=== PATIENT | female | born 1955 | race Caucasian/White ===

== ENCOUNTER → 2016-11-05 | Outpatient (CLI) | payer MEDICARE ==
--- NOTE | 2016-11-05 19:53 | CT ---
EXAMINATION TYPE: CT chest w con DATE OF EXAM: 11/05/2016 COMPARISON: 08/19/2015 HISTORY: Follow up for lung nodules. CT DLP: 348.8 mGycm Automated exposure control for dose reduction was used. CONTRAST: CT scan of the chest is performed with IV Contrast, patient injected with 80 mL of Omnipaque 300. FINDINGS: There are mild emphysematous changes at the lung apices. There is some pleural emphysema in the mid a nd lower lung baez. There is coarse reticular density in the right middle lobe. There is a low-dens ity 1 cm nodule in the subpleural lateral left lung base. There is no pleural effusion. There is a lo w-density 7 mm nodule in the lingula left upper lobe. There is a 5 mm density along the left major fi ssure in the subpleural superior segment left lower lobe. There are no hilar masses. There is no mediastinal adenopathy. There is no evidence of aortic dissect ion. Heart size is normal. There is no pericardial effusion. Ascending aorta measures 3.7 cm. The bon y thorax is intact. There are cortical cysts on the upper pole left kidney. IMPRESSION: Emphysema. Pulmonary fibrotic changes. Small scattered low-density nodules consistent wi th granulomatous disease and without a significant change compared to last exam.
== END | disposition home or self-care (01) ==
LOC: RADCTMAIN 18:50
PROVIDERS: ATTEND Internal Medicine
DX: J43.9 Emphysema, unspecified (principal); J84.10 Pulmonary fibrosis, unspecified; R91.8 Other nonspecific abnormal finding of lung field; Z88.0 Allergy status to penicillin
CPT/HCPCS: 71260; Q9967

== ENCOUNTER → 2018-11-02 | Outpatient (CLI) | payer MEDICARE ==
--- NOTE | 2018-11-02 10:04 | BD ---
EXAMINATION TYPE: Axial Bone Density DATE OF EXAM: 11/02/2018 COMPARISON: NONE CLINICAL HISTORY: 63 YR OLD FEMALE....ICD-10 CODE: M81.0 OSTEOPOROSIS Height: 64 Weight: 178 FRAX RISK QUESTIONS: Family History (Parent hip fracture): YES Glucocorticoids (More than 3mos): YES (Ex: prednisone, prednisolone, methylprednisolone, dexamethasone, and hydrocortisone). SECONDARY OSTEOPOROSIS...YES 3. Menopause before 45: YES Rheumatoid Arthritis: YES Current Tobacco Use: YES RISK FACTORS HISTORY OF: Surgery to Spine DISC SURG TO L4 OR L5 DISC IN PAST, IN 2004 Family History of Osteoporosis: GRANDMOTHER WITH PELVIS AND HIP FX Postmenopausal woman: YES TOTAL HYST AT AGE 38 MEDICATIONS: Prednisone or other steroids: SPIRIVA INHALER FOR COPD, AND SMOKERS COUGH, FOR MANY YRS Additional Medications: CYMBALTA, ADDERALL, STATIN FOR CHOLESTEROL, VITAMIN D 50 THOU UNITS ONCE GEETA HLY, ORENCIA INJ WEEKLY, METHOTREXATE, Additional History: SKIN CA ON SCALP, RA ARTHRITIS EXAM MEASUREMENTS: Bone mineral densitometry was performed using the [employer] System. Bone mineral density as measured about the Lumbar spine is: ----- L1-L4(G/cm2): 1.057 T Score Values are as follows: ----- L1: -1.7 ----- L2: -1.6 ----- L3: -1.3 ----- L4: 0.2 ----- L1-L4: -1.0 Bone mineral density FIRST DEXA SCAN....BASELINE STUDY Bone mineral density about the R hip (g/cm2): 0.750 Bone mineral density about the L hip (g/cm2): 0.747 T Score values are as follows: -----R Neck: -2.0 -----L Neck: -2.3 -----R Total: -2.0 -----L Total: -2.1 Bone mineral density BASELINE STUDY FRAX%s: THERE IS A 40.6% CHANCE FOR A MAJOR OSTEOPOROTIC FX AND A 10.1% FOR HIP.....PROBABILITY FOR FX IN 10 YRS TIME IMPRESSION: Osteopenia (T Score between -2.5 and -1). There is slightly increased risk of fracture and the patient may be considered for treatment. Re-Screen 2-5 years. NOTE: T-SCORE=SD OF THE YOUNG ADULT MEAN.
== END | disposition home or self-care (01) ==
LOC: RADBDWWP 07:08
PROVIDERS: ATTEND Internal Medicine Rheumatology
DX: M85.80 Other specified disorders of bone density and structure, unspecified site (principal)
CPT/HCPCS: 77080

== ENCOUNTER → 2019-02-08 | Outpatient (CLI) | payer MEDICARE ==
[2019-02-08 10:58] LABS: Basophils % (A) 0 %; Eosinophils # (A) 0.3 k/uL (0-0.7); Eosinophils % (A) 5 %; HCT 41.6 % (34.0-46.0); HGB 13.4 gm/dL (11.4-16.0); Lymphocytes # (A) 1.6 k/uL (1.0-4.8); Lymphocytes % (A) 24 %; MCH 30.5 pg (25.0-35.0); MCHC 32.2 g/dL (31.0-37.0); MCV 94.5 fL (80.0-100.0); Mean Platelet Volume 7.1; Monocytes # (A) 0.3 k/uL (0-1.0); Monocytes % (A) 4 %; Neutrophils # (A) 4.2 k/uL (1.3-7.7); Neutrophils % (A) 65 %; Platelet Count 211 k/uL (150-450); RDW 14.3 % (11.5-15.5); WBC 6.5 k/uL (3.8-10.6)
[2019-02-08 12:07] LABS: Erythrocyte Sedimentation Rate 20 mm/hr (0-20)
[2019-02-08 15:29] LABS: % Iron Saturation 12.32 (12.00-45.00); African American GFR (CKD) 89.7 (60.0-200.0); C Reactive Protein 0.8 mg/dL (0.0-0.8); Chol/HDL Ratio 2.3; LDL Cholesterol,Calculated 74.4 mg/dL (0.0-131.0); Non-African American GFR(CKD) 77.4 (60.0-200.0); VLDL Calculation 11.6 mg/dL (5.00-40.00)
[2019-02-08 15:39] LABS: Ferritin 72.8 ng/mL (10.0-291.0)
== END | disposition home or self-care (01) ==
LOC: LABWHC1 09:54
PROVIDERS: ATTEND Family Medicine
DX: Z00.01 Encounter for general adult medical examination with abnormal findings (principal); G47.00 Insomnia, unspecified; M05.89 Other rheumatoid arthritis with rheumatoid factor of multiple sites; F33.1 Major depressive disorder, recurrent, moderate; E55.9 Vitamin D deficiency, unspecified; M25.50 Pain in unspecified joint; M06.9 Rheumatoid arthritis, unspecified; R41.840 Attention and concentration deficit; G25.81 Restless legs syndrome; Z13.220 Encounter for screening for lipoid disorders
CPT/HCPCS: 36415; 80061; 82306; 82565; 82728; 83540; 83550; 84450; 84460; 85025; 85652; 86140

== ENCOUNTER → 2019-02-08 | Outpatient (CLI) | payer MEDICARE ==
--- NOTE | 2019-02-08 12:55 | CTL ---
EXAMINATION TYPE: CT Low Dose Lung DATE OF EXAM ORDERED: 02/08/2019 HISTORY: Personal history tobacco use. Lung cancer screening CT DLP: [address] CTDI: 2.41 mGy Automated exposure control for dose reduction was used. SCREENING VISIT: 1 COMPARISON: CT chest 11/05/2016 TECHNIQUE: Low dose computed tomography scan was performed through the chest at 1 mm thick sections a nd reconstructed CT DIAGNOSTIC QUALITY: Satisfactory FINDINGS: LUNG NODULES: Present, detailed below: LUNGS: The nodular densities on axial image #198 and 180 are stable and likely postinflammatory COPD: Severity: Moderate Fibrosis: Severity: Severe Lymph nodes: Nonenlarged Other findings: RIGHT PLEURAL SPACE: Effusion: None Calcification: None Thickening: None Pneumothorax: None LEFT PLEURAL SPACE: Effusion: None Calcification: None Thickening: None Pneumothorax: None HEART: Heart Size: Small Coronary calcification: Moderate Pericardial effusion: None OTHER FINDINGS: Upper abdomen: Unremarkable Bony thorax: Thoracic spondylosis is present Supraclavicular region: Within normal limits Other: IMPRESSION: Benign FOLLOW UP CT CHEST RECOMMENDATION: [address] LUNG RAD: 2
--- NOTE | 2019-02-09 15:06 | MM ---
Reason for exam: screening (asymptomatic). Last mammogram was performed 4 years and 6 months ago. History: Patient is postmenopausal, history of other cancer, and had first child after 28. Excisional biopsy of the left breast. Took estrogen for 1 year. Physical Findings: A clinical breast exam by your physician is recommended on an annual basis and results should be correlated with mammographic findings. MG Screening Mammo w CAD Bilateral CC and MLO view(s) were taken. Prior study comparison: August 05, 2014, bilateral MG screening mammo w CAD. July 21, 2012, CAD bilateral diagnostic mammogram. The breast tissue is heterogeneously dense. This may lower the sensitivity of mammography. There is a new 5mm right upper outer quadrant middle depth mass 6-7cm from nipple. No suspicious abnormality on the left. ASSESSMENT: Incomplete: need additional imaging evaluation, BI-RAD 0 RECOMMENDATION: Special view mammogram of the right breast. If lesion persists on supplemental views, image directed ultrasound is recommended. [facility] will attempt to contact patient to return for supplemental views and ultrasound if indicated.
== END | disposition home or self-care (01) ==
LOC: RADMAMWWP 09:51
PROVIDERS: ATTEND Family Medicine
DX: Z12.31 Encounter for screening mammogram for malignant neoplasm of breast (principal); Z12.2 Encounter for screening for malignant neoplasm of respiratory organs; J44.9 Chronic obstructive pulmonary disease, unspecified; F17.210 Nicotine dependence, cigarettes, uncomplicated
CPT/HCPCS: 77067; G0297

== ENCOUNTER → 2019-02-26 | Outpatient (CLI) | payer MEDICARE ==
--- NOTE | 2019-02-26 10:34 | MM ---
Reason for exam: additional evaluation requested from abnormal screening. Last mammogram was performed 1 month ago. History: Patient is postmenopausal, history of other cancer, and had first child after 28. Excisional biopsy of the left breast. Took estrogen for 1 year. Physical Findings: Nurse did not find any significant physical abnormalities on exam. MG Work Up Mamm w CAD RT Spot compression CC, spot compression MLO, and ML view(s) were taken of the right breast. Prior study comparison: February 08, 2019, bilateral MG screening mammo w CAD. August 05, 2014, bilateral MG screening mammo w CAD. The breast tissue is heterogeneously dense. This may lower the sensitivity of mammography. Right upper outer quadrant focal asymmetry 6-7cm from nipple appears somewhat similar to prior exams. Precautionary upper outer quadrant ultrasound will be performed. These results were verbally communicated with the patient and result sheet given to the patient on 02/26/19. ASSESSMENT: Incomplete: need additional imaging evaluation, BI-RAD 0 RECOMMENDATION: Ultrasound of the right breast.
--- NOTE | 2019-02-26 10:35 | USB ---
Reason for exam: additional evaluation requested from abnormal screening. History: Patient is postmenopausal, history of other cancer, and had first child after 28. Excisional biopsy of the left breast. Took estrogen for 1 year. US Breast Workup Limited RT Right limited breast ultrasound including focal area of concern, retroareolar and axilla demonstrates no cystic or solid lesion seen. These results were verbally communicated with the patient and result sheet given to the patient on 02/26/19. ASSESSMENT: Negative, BI-RAD 1 RECOMMENDATION: Return to routine screening mammogram schedule for both breasts.
== END | disposition home or self-care (01) ==
LOC: RADMAMWWP 08:49
PROVIDERS: ATTEND Family Medicine
DX: R92.8 Other abnormal and inconclusive findings on diagnostic imaging of breast (principal)
CPT/HCPCS: 77065

== ENCOUNTER → 2019-11-14 | Outpatient (CLI) | payer MEDICARE ==
[2019-11-14 09:31] LABS: Basophils % (A) 0 %; Eosinophils # (A) 0.1 k/uL (0-0.7); Eosinophils % (A) 2 %; HCT 42.9 % (34.0-46.0); HGB 13.3 gm/dL (11.4-16.0); Lymphocytes # (A) 1.5 k/uL (1.0-4.8); Lymphocytes % (A) 23 %; MCH 28.9 pg (25.0-35.0); MCHC 31.1 g/dL (31.0-37.0); Mean Platelet Volume 6.8; Monocytes # (A) 0.4 k/uL (0-1.0); Monocytes % (A) 5 %; Neutrophils # (A) 4.4 k/uL (1.3-7.7); Neutrophils % (A) 68 %; Platelet Count 226 k/uL (150-450); RBC 4.61 m/uL (3.80-5.40); RDW 14.1 % (11.5-15.5); WBC 6.5 k/uL (3.8-10.6)
[2019-11-14 18:14] LABS: Albumin 4.1 g/dL (3.80-4.90); Albumin/Globulin Ratio 1.86 (1.60-3.17); Anion Gap 7.5 mmol/L (4.00-12.00); BUN/Creat Ratio 28.75 Ratio (12.00-20.00); C Reactive Protein 0.4 mg/dL (0.0-0.8); Carbon Dioxide 26.5 mmol/L (21.6-31.8); Chol/HDL Ratio 2.8; Globulin 2.2 g/dL (1.6-3.3); Non-African American GFR(CKD) 76.8 (60.0-200.0); Potassium 4.8 mmol/L (3.5-5.5); Total Bilirubin 0.5 mg/dL (0.3-1.2); Total Protein 6.3 g/dL (6.2-8.2)
[2019-11-14 18:49] LABS: Erythrocyte Sedimentation Rate 29 mm/Hr (0-30)
== END | disposition home or self-care (01) ==
LOC: LABWHC1 08:04
PROVIDERS: ATTEND Family Medicine
DX: F90.0 Attention-deficit hyperactivity disorder, predominantly inattentive type (principal); M05.89 Other rheumatoid arthritis with rheumatoid factor of multiple sites; F33.1 Major depressive disorder, recurrent, moderate; F17.210 Nicotine dependence, cigarettes, uncomplicated; E55.9 Vitamin D deficiency, unspecified
CPT/HCPCS: 36415; 80053; 80061; 82306; 85025; 85652; 86140

== ENCOUNTER → 2020-02-08 | Outpatient (CLI) | payer MEDICARE ==
[2020-02-08 10:02] LABS: Basophils % (A) 0 %; Eosinophils # (A) 0.1 k/uL (0-0.7); Eosinophils % (A) 2 %; HCT 41.4 % (34.0-46.0); HGB 13.3 gm/dL (11.4-16.0); Lymphocytes # (A) 1.8 k/uL (1.0-4.8); Lymphocytes % (A) 27 %; MCH 30.5 pg (25.0-35.0); MCV 95.4 fL (80.0-100.0); Mean Platelet Volume 6.7; Monocytes # (A) 0.2 k/uL (0-1.0); Monocytes % (A) 3 %; Neutrophils # (A) 4.5 k/uL (1.3-7.7); Neutrophils % (A) 67 %; Platelet Count 239 k/uL (150-450); RBC 4.35 m/uL (3.80-5.40); RDW 14.8 % (11.5-15.5); WBC 6.7 k/uL (3.8-10.6)
[2020-02-08 11:37] LABS: Erythrocyte Sedimentation Rate 18 mm/hr (0-20)
[2020-02-08 15:59] LABS: ALT 50 U/L (8-44); AST 40 U/L (13-35); African American GFR (CKD) 77.2 (60.0-200.0); C Reactive Protein <0.4 mg/dL (0.0-0.8); Non-African American GFR(CKD) 66.6 (60.0-200.0)
== END | disposition home or self-care (01) ==
LOC: LABWHC1 09:06 → EDSTATUS 09:09
PROVIDERS: ATTEND Internal Medicine Rheumatology
DX: M06.9 Rheumatoid arthritis, unspecified (principal)
CPT/HCPCS: 36415; 82565; 84450; 84460; 85025; 85652; 86140

== ENCOUNTER → 2020-04-11 | Outpatient (CLI) | payer MEDICARE ==
--- NOTE | 2020-04-11 11:04 | MM ---
Reason for exam: screening (asymptomatic). Last mammogram was performed 1 year and 1 month ago. History: Patient is postmenopausal, history of other cancer, and had first child after 28. Excisional biopsy of the left breast. Took estrogen for 1 year. Physical Findings: A clinical breast exam by your physician is recommended on an annual basis and results should be correlated with mammographic findings. MG 3D Screening Mammo W/Cad Bilateral CC and MLO view(s) were taken. Prior study comparison: February 26, 2019, right breast MG work up mamm w CAD RT. February 08, 2019, bilateral MG screening mammo w CAD. The breast tissue is extremely dense which could obscure a lesion on mammography. There is no discrete abnormality. No significant changes when compared with prior studies. ASSESSMENT: Negative, BI-RAD 1 RECOMMENDATION: Routine screening mammogram of both breasts in 1 year.
== END | disposition home or self-care (01) ==
LOC: RADMAMWWP 09:50
PROVIDERS: ATTEND Family Medicine
DX: Z12.31 Encounter for screening mammogram for malignant neoplasm of breast (principal)
CPT/HCPCS: 77063; 77067

== ENCOUNTER → 2020-05-08 | Outpatient (CLI) | payer MEDICARE ==
[2020-05-08 20:28] LABS: Basophils # (A) 0.05 X 10*3/uL (0.00-0.10); Basophils % (A) 0.7 %; Eosinophils % (A) 1.4 %; HCT 40.9 % (37.2-46.3); HGB 12.9 g/dL (12.0-15.0); Lymphocytes # (A) 2.05 X 10*3/uL (0.90-5.00); Lymphocytes % (A) 28.3 %; MCH 30.7 pg (27.0-32.0); MCHC 31.5 g/dL (32.0-37.0); MCV 97.4 fL (80.0-97.0); Mean Platelet Volume 9.5 fL (9.5-12.2); Monocytes # (A) 0.43 X 10*3/uL (0.20-1.00); Monocytes % (A) 5.9 %; Neutrophils # (A) 4.58 X 10*3/uL (1.80-7.70); Neutrophils % (A) 63.3 %; Platelet Count 254 X 10*3/uL (140-440); RDW 12.9 % (11.5-14.5); WBC 7.24 X 10*3/uL (4.50-10.00)
[2020-05-08 23:29] LABS: Erythrocyte Sedimentation Rate 17 mm/Hr (0-30)
[2020-05-09 03:44] LABS: ALT 46 U/L (8-44); AST 28 U/L (13-35); C Reactive Protein <0.4 mg/dL (0.0-0.8); Non-African American GFR(CKD) 76.8 (60.0-200.0)
== END | disposition home or self-care (01) ==
LOC: LABWHC1 09:41 → EDSTATUS 09:44
PROVIDERS: ATTEND Internal Medicine Rheumatology
DX: M06.9 Rheumatoid arthritis, unspecified (principal)
CPT/HCPCS: 36415; 82565; 84450; 84460; 85025; 85652; 86140

== ENCOUNTER → 2020-08-08 | Outpatient (CLI) | payer MEDICARE ==
[2020-08-08 15:35] LABS: Basophils # (A) 0.03 X 10*3/uL (0.00-0.10); Basophils % (A) 0.4 %; Eosinophils % (A) 1.2 %; HCT 40.1 % (37.2-46.3); HGB 12.7 g/dL (12.0-15.0); Lymphocytes # (A) 1.81 X 10*3/uL (0.90-5.00); Lymphocytes % (A) 22.6 %; MCH 31.4 pg (27.0-32.0); MCHC 31.7 g/dL (32.0-37.0); MCV 99.3 fL (80.0-97.0); Mean Platelet Volume 9.7 fL (9.5-12.2); Monocytes # (A) 0.72 X 10*3/uL (0.20-1.00); Neutrophils # (A) 5.31 X 10*3/uL (1.80-7.70); Neutrophils % (A) 66.2 %; Platelet Count 229 X 10*3/uL (140-440); RBC 4.04 X 10*6/uL (4.10-5.20); RDW 14.5 % (11.5-14.5); WBC 8.02 X 10*3/uL (4.50-10.00)
[2020-08-08 17:59] LABS: ALT 44 U/L (8-44); AST 32 U/L (13-35); African American GFR (CKD) 76.7 (60.0-200.0); C Reactive Protein <0.4 mg/dL (0.0-0.8); Non-African American GFR(CKD) 66.2 (60.0-200.0)
[2020-08-08 18:02] LABS: Erythrocyte Sedimentation Rate 15 mm/Hr (0-30)
== END | disposition home or self-care (01) ==
LOC: LABWHC1 08:40
PROVIDERS: ATTEND Internal Medicine Rheumatology
DX: M06.9 Rheumatoid arthritis, unspecified (principal)
CPT/HCPCS: 36415; 82565; 84450; 84460; 85025; 85652; 86140

== ENCOUNTER → 2021-09-28 | Outpatient (CLI) | payer MEDICARE ==
[2021-09-28 15:00] LABS: Basophils # (A) 0.02 X 10*3/uL (0.00-0.10); Basophils % (A) 0.3 %; Eosinophils # (A) 0.09 X 10*3/uL (0.04-0.35); Eosinophils % (A) 1.2 %; HGB 12.3 g/dL (12.0-15.0); Immature Grans, Automated 0.6 %; Lymphocytes # (A) 1.56 X 10*3/uL (0.90-5.00); Lymphocytes % (A) 21.5 %; MCH 30.5 pg (27.0-32.0); MCV 101.7 fL (80.0-97.0); Mean Platelet Volume 9.4 fL (9.5-12.2); Monocytes # (A) 0.52 X 10*3/uL (0.20-1.00); Monocytes % (A) 7.2 %; NRBC Per 100 WBC 0 /100 WBCS (0.0-0.0); Neutrophils # (A) 5.01 X 10*3/uL (1.80-7.70); Neutrophils % (A) 69.2 %; Platelet Count 261 X 10*3/uL (140-440); RBC 4.03 X 10*6/uL (4.10-5.20); RDW 14.6 % (11.5-14.5); WBC 7.24 X 10*3/uL (4.50-10.00)
[2021-09-28 15:04] LABS: ALT 48 U/L (8-44); AST 33 U/L (13-35); C Reactive Protein <0.30 mg/dL (0.00-0.80); Non-African American GFR(CKD) 57.8 (60.0-200.0)
[2021-09-28 15:45] LABS: Erythrocyte Sedimentation Rate 48 mm/Hr (0-30)
== END | disposition home or self-care (01) ==
LOC: LABWHC1 09:13
PROVIDERS: ATTEND Internal Medicine Rheumatology
DX: M06.9 Rheumatoid arthritis, unspecified (principal)
CPT/HCPCS: 36415; 82565; 84450; 84460; 85025; 85652; 86140

== ENCOUNTER → 2022-01-11 | Outpatient (CLI) | payer MEDICARE ==
[2022-01-11 14:19] LABS: Basophils # (A) 0.03 X 10*3/uL (0.00-0.10); Basophils % (A) 0.4 %; Eosinophils # (A) 0.12 X 10*3/uL (0.04-0.35); Eosinophils % (A) 1.6 %; HCT 40.3 % (37.2-46.3); HGB 12.7 g/dL (12.0-15.0); Immature Grans, Automated 0.9 %; Lymphocytes # (A) 1.78 X 10*3/uL (0.90-5.00); Lymphocytes % (A) 23.4 %; MCH 32.6 pg (27.0-32.0); MCHC 31.5 g/dL (32.0-37.0); MCV 103.6 fL (80.0-97.0); Mean Platelet Volume 9.2 fL (9.5-12.2); Monocytes # (A) 0.47 X 10*3/uL (0.20-1.00); Monocytes % (A) 6.2 %; NRBC Per 100 WBC 0 /100 WBCS (0.0-0.0); Neutrophils # (A) 5.14 X 10*3/uL (1.80-7.70); Neutrophils % (A) 67.5 %; Platelet Count 255 X 10*3/uL (140-440); RBC 3.89 X 10*6/uL (4.10-5.20); RDW 14.7 % (11.5-14.5); WBC 7.61 X 10*3/uL (4.50-10.00)
[2022-01-11 15:31] LABS: ALT 53 U/L (8-44); AST 33 U/L (13-35); C Reactive Protein <0.30 mg/dL (0.00-0.80); Non-African American GFR(CKD) 57.8 (60.0-200.0)
[2022-01-11 16:28] LABS: Erythrocyte Sedimentation Rate 25 mm/Hr (0-30)
== END | disposition home or self-care (01) ==
LOC: LABWHC1 09:07
PROVIDERS: ATTEND Internal Medicine Rheumatology
DX: M06.9 Rheumatoid arthritis, unspecified (principal)
CPT/HCPCS: 36415; 82565; 84450; 84460; 85025; 85652; 86140

== ENCOUNTER → 2022-03-05 | Outpatient (CLI) | payer MEDICARE ==
[2022-03-05 14:54] LABS: Basophils # (A) 0.04 X 10*3/uL (0.00-0.10); Basophils % (A) 0.6 %; Eosinophils # (A) 0.09 X 10*3/uL (0.04-0.35); Eosinophils % (A) 1.4 %; HCT 39.8 % (37.2-46.3); HGB 12.8 g/dL (12.0-15.0); Immature Grans, Automated 0.6 %; Lymphocytes # (A) 1.66 X 10*3/uL (0.90-5.00); Lymphocytes % (A) 26.4 %; MCH 33.2 pg (27.0-32.0); MCHC 32.2 g/dL (32.0-37.0); MCV 103.1 fL (80.0-97.0); Mean Platelet Volume 9.4 fL (9.5-12.2); Monocytes # (A) 0.45 X 10*3/uL (0.20-1.00); Monocytes % (A) 7.2 %; NRBC Per 100 WBC 0 /100 WBCS (0.0-0.0); Neutrophils % (A) 63.8 %; Platelet Count 230 X 10*3/uL (140-440); RBC 3.86 X 10*6/uL (4.10-5.20); RDW 13.9 % (11.5-14.5); WBC 6.28 X 10*3/uL (4.50-10.00)
[2022-03-05 15:18] LABS: Erythrocyte Sedimentation Rate 42 mm/Hr (0-30)
[2022-03-05 15:47] LABS: ALT 66 U/L (8-44); AST 37 U/L (13-35); C Reactive Protein <0.30 mg/dL (0.00-0.80); Non-African American GFR(CKD) 57.8 (60.0-200.0)
== END | disposition home or self-care (01) ==
LOC: LABWHC1 09:22
PROVIDERS: ATTEND Internal Medicine Rheumatology
DX: M06.9 Rheumatoid arthritis, unspecified (principal)
CPT/HCPCS: 36415; 82565; 84450; 84460; 85025; 85652; 86140

== ENCOUNTER → 2022-06-23 | Outpatient (CLI) | payer MEDICARE ==
--- NOTE | 2022-06-23 09:33 | CTL ---
EXAMINATION TYPE: CT Low Dose Lung DATE OF EXAM ORDERED: 06/23/2022 HISTORY: Long-term tobacco use . Lung cancer screening CT DLP: 132.[address] CTDI: 3.7 mGy Automated exposure control for dose reduction was used. SCREENING VISIT: First after baseline COMPARISON: Prior study 2019 TECHNIQUE: Low dose computed tomography scan was performed through the chest at 1 mm thick sections a nd reconstructed images in multiple planes at 1 mm and [address] DIAGNOSTIC QUALITY: Limited, but interpretable Better diagnostic quality versus prior. FINDINGS: LUNG NODULES: Present, detailed below: There is 5 mm peripheral lingular nodule axial image 189 unchanged from prior. There is a 6 mm periph eral left lower lobe nodule axial image 195 unchanged from prior. There is 7 mm peripheral right midd le lobe nodule axial image 185 also unchanged from prior. There is 9 x 5 mm left lower lobe nodule or nodular scarring abutting the fissure axial image 142 which is stable from prior. There is however slightly larger growing 9 x 6 mm peripheral right lower lobe nodule axial image 228. No new greater than 5 mm pulmonary nodules. LUNGS: COPD: Severity: Mild Fibrosis: Severity: Fairly advanced bilateral peripheral fibrotic change with areas of honeycombing s een in the periphery bilaterally and areas of bronchiectasis noted in the right middle lobe. There ma y be slight interval progression from 2019 study. Lymph nodes: New prominent but subcentimeter lymph node anterior to ascending aorta axial image 19 se nasreen 4. Other findings: Ascending aorta measures up to 3.9 cm in diameter RIGHT PLEURAL SPACE: Effusion: None Calcification: None Thickening: None Pneumothorax: None LEFT PLEURAL SPACE: Effusion: None Calcification: None Thickening: None Pneumothorax: None HEART: Heart Size: Normal Coronary Calcification: Mild Pericardial Effusion: None OTHER FINDINGS: Upper abdomen: Some cortical thinning with thin-walled cysts scattered throughout the upper pole of t he left kidney. Visualized Liver is diffusely low dense consistent with diffuse fatty infiltration Bony thorax: None Supraclavicular region: None Other: None IMPRESSION: Advanced bilateral pulmonary parenchymal fibrotic change perhaps slightly worsened from 2 019. Correlate for UIP. Small nodules or nodular scarring bilaterally redemonstrated. Majority stable presumed postinflammatory. There is one slightly larger 9 x [address] LUNG RAD AND CT CHEST RECOMMENDATION: Lung-Rad 4A Suspicious: Follow-up 3 month LDCT or PET/CT may be used when there is a > 8 mm solid component. S Modifier (other clinically significant findings): S Prominent fibrosis.
== END | disposition home or self-care (01) ==
LOC: RADCTMAIN 08:11
PROVIDERS: ATTEND Family Medicine
DX: Z12.2 Encounter for screening for malignant neoplasm of respiratory organs (principal); J84.10 Pulmonary fibrosis, unspecified; J98.4 Other disorders of lung; F17.210 Nicotine dependence, cigarettes, uncomplicated; R91.8 Other nonspecific abnormal finding of lung field
CPT/HCPCS: 71271

== ENCOUNTER → 2022-06-23 | Outpatient (CLI) | payer MEDICARE ==
[2022-06-23 15:28] LABS: Basophils # (A) 0.01 X 10*3/uL (0.00-0.10); Basophils % (A) 0.2 %; Eosinophils # (A) 0.05 X 10*3/uL (0.04-0.35); Eosinophils % (A) 0.9 %; HCT 41.6 % (37.2-46.3); HGB 13.5 g/dL (12.0-15.0); Immature Grans, Automated 0.5 %; Lymphocytes # (A) 0.77 X 10*3/uL (0.90-5.00); Lymphocytes % (A) 13.9 %; MCH 31.4 pg (27.0-32.0); MCHC 32.5 g/dL (32.0-37.0); MCV 96.7 fL (80.0-97.0); Monocytes # (A) 0.31 X 10*3/uL (0.20-1.00); Monocytes % (A) 5.6 %; NRBC Per 100 WBC 0 /100 WBCS (0.0-0.0); Neutrophils # (A) 4.35 X 10*3/uL (1.80-7.70); Neutrophils % (A) 78.9 %; Platelet Count 239 X 10*3/uL (140-440); WBC 5.52 X 10*3/uL (4.50-10.00)
[2022-06-23 17:16] LABS: C Reactive Protein 1.9 mg/dL (0.00-0.80); Non-African American GFR(CKD) 57.8 (60.0-200.0)
[2022-06-23 17:35] LABS: Erythrocyte Sedimentation Rate 80 mm/Hr (0-30)
== END | disposition home or self-care (01) ==
LOC: LABWHC1 08:27
PROVIDERS: ATTEND Internal Medicine Rheumatology
DX: M06.9 Rheumatoid arthritis, unspecified (principal)
CPT/HCPCS: 36415; 82565; 84450; 84460; 85025; 85652; 86140

== ENCOUNTER → 2022-07-23 | Outpatient (CLI) | payer MEDICARE ==
--- NOTE | 2022-07-23 13:27 | PE ---
EXAMINATION TYPE: PET CT fusion skull to thigh DATE OF EXAM: 07/23/2022 COMPARISON: Low-dose lung screening CT June 23, 2022 HISTORY: Abnormal CT, solitary pulmonary nodule. TECHNIQUE: Following the intravenous administration of 11.45 mCi of F-18 FDG, whole body images are performed from the skull base to the midthigh. Images are reviewed on the computer in the coronal, a xial, and sagittal planes. Reconstructed rotating images are created on independent workstation and reviewed on the computer. A localization and attenuation correction CT is performed in conjunction with the PET scan. Blood glucose level equals 105 SCAN: Initial Scan FINDINGS: SKULL BASE AND NECK: No areas of abnormal hypermetabolic uptake. CHEST, MEDIASTINUM, AND HILAR REGION: At least moderate peripheral parenchymal fibrotic change is red emonstrated involving upper and lower lungs more prominent inferiorly. There are areas of subcentimet er nodularity remaining present. For reference posterior right lower lobe axial image 117. No areas o f abnormal hypermetabolic uptake. ABDOMEN AND PELVIS: No areas of abnormal hypermetabolic uptake. Normal excretion. OSSEOUS STRUCTURES: No areas of abnormal hypermetabolic uptake. OTHER CT: Cardiomegaly with enlarged pulmonary arteries suggesting underlying pulmonary artery hypert ension is redemonstrated. Liver is low dense consistent with fatty infiltrative hepatocellular disease. Uterus is surgically ab sent. Multilevel vacuum disc phenomenon in the lumbar spine is present. IMPRESSION: No areas of abnormal hypermetabolic uptake to suggest malignancy. Short term diagnostic C T follow-up in 6months time is advised to reevaluate subcentimeter pulmonary nodules.
== END | disposition home or self-care (01) ==
LOC: RADPETMAIN 10:51
PROVIDERS: ATTEND Family Medicine
DX: R91.1 Solitary pulmonary nodule (principal)
CPT/HCPCS: 78815; A9552

== ENCOUNTER → 2022-10-04 | Outpatient (CLI) | payer MEDICARE ==
[2022-10-04 15:39] LABS: Basophils # (A) 0.02 X 10*3/uL (0.00-0.10); Basophils % (A) 0.3 %; Eosinophils # (A) 0.06 X 10*3/uL (0.04-0.35); HCT 47.4 % (37.2-46.3); HGB 15.1 d/dL (12.0-15.0); Lymphocytes # (A) 1.65 X 10*3/uL (0.90-5.00); Lymphocytes % (A) 26.9 %; MCH 31.1 pg (27.0-32.0); MCHC 31.9 d/dL (32.0-37.0); MCV 97.7 FL (80.0-97.0); Mean Platelet Volume 9.4 FL (9.5-12.2); Monocytes # (A) 0.44 X 10*3/uL (0.20-1.00); Monocytes % (A) 7.2 %; NRBC Per 100 WBC 0 X 10*3/uL (0.00-0.01); Neutrophils # (A) 3.95 X 10*3/uL (1.80-7.70); Neutrophils % (A) 64.4 %; Platelet Count 251 X 10*3/uL (140-440); RBC 4.85 X 10*6/uL (4.10-5.20); RDW 14.3 % (11.5-14.5); WBC 6.13 X 10*3/uL (4.50-10.00)
[2022-10-04 16:13] LABS: Erythrocyte Sedimentation Rate 39 mm/Hr (0-30)
[2022-10-04 16:14] LABS: ALT 36 U/L (8-44); AST 32 U/L (13-35); C Reactive Protein <0.30 mg/dL (0.00-0.80)
== END | disposition home or self-care (01) ==
LOC: LABWHC1 09:01
PROVIDERS: ATTEND Internal Medicine Rheumatology
DX: M06.9 Rheumatoid arthritis, unspecified (principal)
CPT/HCPCS: 36415; 82565; 84450; 84460; 85025; 85652; 86140

== ENCOUNTER → 2023-01-21 | Outpatient (CLI) | payer MEDICARE ==
--- NOTE | 2023-01-23 10:05 | PE ---
EXAMINATION TYPE: PET CT fusion skull to thigh DATE OF EXAM: 01/21/2023 CLINICAL INDICATION:Female, 67 years old with history of R91.1 SOLITARY PULMONARY NODULE; TECHNIQUE: Following the intravenous administration of 13.28 mCi of F-18 FDG, whole body images are performed from the skull base to the midthigh. Images are reviewed on the computer in the coronal, axial, and sagittal planes. Reconstructed rotating images are created on independent workstation and reviewed on the computer. A non-contrast CT is performed in conjunction with the PET scan. Glucose level 87 mg/dL CT DLP: 741 mGycm, Automated exposure control for dose reduction was used. COMPARISON: CT 06/23/2022., PET/CT 5 08/23/2022, FINDINGS: Mediastinal SUV mean is 2.2. Hepatic parenchyma SUV mean is 2.7. SKULL BASE AND NECK: No suspicious radiotracer activity. CHEST, MEDIASTINUM, AND HILAR REGION: No suspicious radiotracer activity. ABDOMEN AND PELVIS: No suspicious radiotracer activity. MUSCULOSKELETAL STRUCTURES: No suspicious radiotracer activity. OTHER CT: Cardiomegaly with enlarged pulmonary arteries suggesting underlying pulmonary artery hypert ension is redemonstrated. Hepatic steatosis. Uterus is surgically absent. Multilevel vacuum disc phen omenon in the lumbar spine is present. Fibrotic change within the lungs bilaterally. There is predomi nantly peripheral reticulation with honeycombing most pronounced in the lung bases posteriorly. IMPRESSION: No suspicious radiotracer activity. Findings suspicious for interstitial lung disease most compatible with UIP with honeycombing.
== END | disposition home or self-care (01) ==
LOC: RADPETMAIN 06:13
PROVIDERS: ATTEND Family Medicine
DX: R91.1 Solitary pulmonary nodule (principal)
CPT/HCPCS: 78815; A9552

== ENCOUNTER → 2023-03-15 | Outpatient (CLI) | payer MEDICARE ==
[2023-03-15 18:39] LABS: HCT 40.9 % (37.2-46.3); HGB 13.3 g/dL (12.0-15.0); MCH 32.4 pg (27.0-32.0); MCHC 32.5 g/dL (32.0-37.0); MCV 99.5 FL (80.0-97.0); Mean Platelet Volume 9.2 FL (9.5-12.2); NRBC Per 100 WBC 0 X 10*3/uL (0.00-0.01); Platelet Count 266 X 10*3/uL (140-440); RBC 4.11 X 10*6/uL (4.10-5.20); RDW 13.7 % (11.5-14.5); WBC 6.28 X 10*3/uL (4.50-10.00)
[2023-03-15 18:48] LABS: ALT 28 U/L (8-44)
[2023-03-15 18:49] LABS: AST 25 U/L (13-35)
[2023-03-15 18:51] LABS: Erythrocyte Sedimentation Rate 19 mm/Hr (0-30)
== END | disposition home or self-care (01) ==
LOC: LABWHC1 13:24
PROVIDERS: ATTEND Internal Medicine Rheumatology
DX: M06.9 Rheumatoid arthritis, unspecified (principal)
CPT/HCPCS: 36415; 82565; 84450; 84460; 85027; 85652; 86140

== ENCOUNTER → 2023-05-04 | Outpatient (CLI) | payer MEDICARE ==
[2023-05-04 11:58] LABS: Chol/HDL Ratio 3.08 Ratio; LDL Cholesterol,Calculated 145.5 mg/dL (0.0-131.0)
== END | disposition home or self-care (01) ==
LOC: LABWHC1 08:16
PROVIDERS: ATTEND Internal Medicine Rheumatology
DX: M06.9 Rheumatoid arthritis, unspecified (principal)
CPT/HCPCS: 36415; 80061

== ENCOUNTER → 2023-06-07 | Outpatient (CLI) | payer MEDICARE ==
--- NOTE | 2023-06-07 12:52 | BD ---
EXAMINATION TYPE: Axial Bone Density DATE OF EXAM: 06/07/2023 CLINICAL HISTORY: 67 years old Female. ICD-10 CODE: M81.0 AGE RELATED OSTEOPOROSIS Height: 64 Weight: 191.1 FRAX RISK QUESTIONS: Alcohol (3 or more units per day): no Family History (Parent hip fracture): no Glucocorticoids (More than 3mos): no (Ex: prednisone, prednisolone, methylprednisolone, dexamethasone, and hydrocortisone). History of Fracture in Adulthood: finger and toes Secondary Osteoporosis: 1. Type 1 Diabetes: no 2. Hyperthyroidism: no 3. Menopause before 45: no 4. Malnutrition: no 5. Chronic liver disease: no Rheumatoid Arthritis: yes Current Tobacco Use: yes RISK FACTORS HISTORY OF: Hip Fracture (Right/Left): no Spine Fracture: no History of Wrist Fracture: no Surgery to Spine/Hip(right/left)/Wrist (right/left): no MEDICATIONS: Thyroid Medications: no Osteoporosis Medications: no EXAM MEASUREMENTS: Bone mineral densitometry was performed using the [employer] System. Bone mineral density as measured about the Lumbar spine is: ----- L1-L4(G/cm2): 1.106 T Score Values are as follows: ----- L1: -1.4 ----- L2: -0.9 ----- L3: -1.2 ----- L4: 0.5 ----- L1-L4: -0.6 Z Score Values are as follows: ----- L1: -0.5 ----- L2: 0.0 ----- L3: -0.3 ----- L4: 1.5 ----- L1-L4: 0.3 Bone mineral density has: increased 4.6 % since study of: 11/02/2018 Bone mineral density about the R hip (g/cm2): 0.731 Bone mineral density about the L hip (g/cm2): 0.717 T Score values are as follows: -----R Neck: -2.5 -----L Neck: -2.3 -----R Total: -2.2 -----L Total: -2.3 Z Score values are as follows: -----R Neck: -1.3 -----L Neck: -1.0 -----R Total: -1.3 -----L Total: -1.4 Bone mineral density has: decreased -3.2 % since study of: 11/02/2018 FRAX%s: The graph provided illustrates a 47.8 % chance for a major osteoporotic fx and a 27.6% chance for the hips probability for fx in 10 years time. IMPRESSION: Osteopenia (T Score between -2.5 and -1). There is slightly increased risk of fracture and the patient may be considered for treatment. Re-Screen 2-5 years. NOTE: T-SCORE=SD OF THE YOUNG ADULT MEAN.
== END | disposition home or self-care (01) ==
LOC: RADBDWWP 10:37
PROVIDERS: ATTEND Internal Medicine Rheumatology
DX: M81.0 Age-related osteoporosis without current pathological fracture (principal); M85.89 Other specified disorders of bone density and structure, multiple sites
CPT/HCPCS: 77080

== ENCOUNTER → 2023-08-24 | Outpatient (CLI) | payer MEDICARE ==
[2023-08-24 15:45] LABS: ALT 44 U/L (8-44); AST 32 U/L (13-35)
[2023-08-24 16:14] LABS: Basophils # (A) 0.04 X 10*3/uL (0.00-0.10); Basophils % (A) 0.6 %; Eosinophils # (A) 0.08 X 10*3/uL (0.04-0.35); Eosinophils % (A) 1.3 %; HCT 43.3 % (37.2-46.3); HGB 13.8 g/dL (12.0-15.0); Lymphocytes # (A) 1.78 X 10*3/uL (0.90-5.00); Lymphocytes % (A) 28.8 %; MCHC 31.9 g/dL (32.0-37.0); MCV 100.5 FL (80.0-97.0); Mean Platelet Volume 9.8 FL (9.5-12.2); Monocytes # (A) 0.36 X 10*3/uL (0.20-1.00); Monocytes % (A) 5.8 %; NRBC Per 100 WBC 0 X 10*3/uL (0.00-0.01); Neutrophils # (A) 3.88 X 10*3/uL (1.80-7.70); Neutrophils % (A) 62.9 %; Platelet Count 251 X 10*3/uL (140-440); RBC 4.31 X 10*6/uL (4.10-5.20); RDW 13.3 % (11.5-14.5); WBC 6.18 X 10*3/uL (4.50-10.00)
[2023-08-24 16:31] LABS: Erythrocyte Sedimentation Rate 23 mm/Hr (0-30)
== END | disposition home or self-care (01) ==
LOC: LABWHC1 12:03
PROVIDERS: ATTEND Internal Medicine Rheumatology
DX: M06.9 Rheumatoid arthritis, unspecified (principal)
CPT/HCPCS: 36415; 82565; 84450; 84460; 85025; 85652; 86140

== ENCOUNTER → 2023-09-06 | Outpatient (CLI) | payer MEDICARE ==
--- NOTE | 2023-09-06 09:16 | CTL ---
EXAMINATION TYPE: CT Low Dose Lung DATE OF EXAM: 09/06/2023 8:17 AM CLINICAL INDICATION:Female, 68 years old with history of Z12.2 SCREENING; tobacco use x50 years 1ppd , history of tobacco use. COMPARISON: 06/23/2022. 01/21/2023 TECHNIQUE: Multiple axial non-contrast scans were obtained from approximately the lung apices through the upper abdomen. Coronal and sagittal reformatted images were obtained. Low dose technique was uti lized. CT DLP: 138.9 mGycm, Automated exposure control for dose reduction was used. CT Contrast: Contrast used: None Oral contrast used: None FINDINGS: ======== Lack of intravenous contrast and low dose technique limits the evaluation of the vascular and soft ti ssue structures. LUNGS: No evidence of pulmonary fibrosis. No evidence of focal consolidation, pneumothorax or pleural effusion. Centrilobular and paraseptal emphysema changes. Posterior honeycombing is present and cliff lar to prior CT/PET 01/21/2023. Nodules: RUL: None. RML: None. RLL: None. JOHN: None. LLL: None. AIRWAY: Patent and unremarkable. HEART: Size within normal limits. MEDIASTINUM: No gross evidence of adenopathy. VASCULATURE: No aortic aneurysm. MUSCULOSKELETAL: Moderate disc degeneration changes are present throughout the thoracolumbar spine. SOFT TISSUES/LYMPH NODES: Unremarkable. LOWER NECK: No significant findings. UPPER ABDOMEN: Diffuse low-attenuation to the liver parenchyma. IMPRESSION: 1. No clinically significant pulmonary nodules. 2. Moderate emphysema with interstitial lung disease and honeycombing suggested. 3. Hepatic steatosis CT LUNG RAD AND CT CHEST RECOMMENDATION: Lung-Rad 1 Negative: Continue annual screening with LDCT in 12 months. S Modifier (other clinically significant findings): None Recommend smoking cessation (if current smoker), or continuation of smoking cessation (if prior smoke r). Annual screening for lung cancer with low-dose computed tomography is recommended in adults ages 55 to 77 years who have a 30 pack-year smoking history and currently smoke or have quit within the pa st 15 years. Screening should be discontinued once a person has not smoked for 15 years or develops a health problem that substantially limits life expectancy or the ability or willingness to have curat iveth lung surgery. Lung rads 2021 [email or web address]
--- NOTE | 2023-09-14 19:35 | MM ---
Reason for Exam: Screening (asymptomatic). Last mammogram was performed 1 year(s) and 2 month(s) ago. Patient History: Menarche at age 12. Patient has no children. Left ovary removed at age 32. Right ovary removed at age 32. Hysterectomy at age 32. Postmenopausal. Other cancer. Patient used Estrogen for 1 year. Hormonal Contraceptives for 27 years from age 16 until age 43. Excisional Biopsy on the Left side. Risk Values: Elvira 5 year model risk: 2.1%. NCI Lifetime model risk: 6.0%. Prior Study Comparison: 02/26/2019 Right Diagnostic Mammogram, [facility]. 04/11/2020 Bilateral Screening Mammogram, [facility]. 07/01/2022 Bilateral MG 3D screening mammo w/cad, [facility]. Tissue Density: There are scattered areas of fibroglandular density. Findings: Analyzed By CAD. The pattern is symmetrical. No significant interval change is evident. Benign calcifications within the left breast No suspicious groups of microcalcifications, spiculated or lobular masses, architectural distortion or other secondary signs of malignancy are mammographically apparent. Overall Assessment: Benign, BI-RAD 2 Management: Screening Mammogram of both breasts in 1 year. A negative mammogram report should not preclude additional follow up of suspicious palpable abnormalities. Patient should continue monthly self breast exam. A clinical breast exam by your physician is recommended on an annual basis and results should be correlated with mammographic findings. Note on Elvira scores and lifetime risk: 1. A Elvira score greater than 3% is considered moderate risk. If this is the case, consider specialist referral to assess eligibility for a risk reducing agent. 2. If overall lifetime risk for the development of breast cancer is 20% or higher, the patient may qualify for future screening with alternating mammogram and breast MRI. Electronically signed and approved by: Live Lara D.O. Radiologis
== END | disposition home or self-care (01) ==
LOC: RADMAMWWP 07:21
PROVIDERS: ATTEND Family Medicine
DX: Z12.31 Encounter for screening mammogram for malignant neoplasm of breast (principal); Z12.2 Encounter for screening for malignant neoplasm of respiratory organs; K76.0 Fatty (change of) liver, not elsewhere classified; J43.2 Centrilobular emphysema; J84.9 Interstitial pulmonary disease, unspecified; F17.210 Nicotine dependence, cigarettes, uncomplicated; Z78.0 Asymptomatic menopausal state
CPT/HCPCS: 71271; 77063; 77067

== ENCOUNTER → 2023-10-24 | Outpatient (CLI) | payer MEDICARE ==
[~2023-10-24] MED LIST: REGADENOSON 0.4 MG/5 ML SYRINGE IV ONE
--- NOTE | 2023-10-24 10:42 | CA ---
Lexiscan Nuclear Stress Test Report Name: Promise Lobo Exam Date: 10/24/2023 09:11 Exam Location: [facility] Ht (in): 66 Wt (lb): 200 BSA: 2.00 Ordering Phys: Delvin Morrissey MD Referring Phys: BERNARDO Technologist: JUAN A Age: 68 Gender: F : 1955 Procedure CPT: Indications: I20.89 OTHER FORMS OF ANGINA PECTORIS ICD-10 Codes: Patient History: Shortness of breath and family history of heart disease Medications: Meds past 24 hrs: Pretest Chest Pain: STRESS TEST Lexiscan Protocol Exercise Duration (min:sec): 02:[address] Depressions (mm): Angina Score: Gottlieb Score: Resting HR (bpm): 59 Peak HR (bpm): 88 Resting BP (mmHg): 134 / 82 Peak BP (mmHg): 162 / 83 MPHR: 150 Target HR: 128 % MPHR: 59 METS: 1.0 Total Dose: Peak Dose: Atropine: Double Product: 75850 BP Response: Stress Termination: Infusion complete Stress Symptoms: Nausea Stress Summary: ECG ANALYSIS Resting ECG: Stress ECG: CONCLUSIONS At baseline EKG showed normal sinus rhythm, normal axis, no significant ST or T wave abnormalities. Patient recieved IV infusion of Lexiscan 0.4mg and at peak infusion EKG showed no significant change from baseline. Conclusions: 1. Normal EKG response to Lexiscan infusion 2. Nuclear imaging to be reported separately. Dr. Peewee Salazar DO (Electronically Signed) Final Date: 24 October 2023 10:41
--- NOTE | 2023-10-24 11:57 | NM ---
EXAMINATION TYPE: NM stress lexiscan cardiolite DATE OF EXAM: 10/24/2023 COMPARISON: NONE CLINICAL INDICATION: Female, 68 years old with history of I20.89 OTHER FORMS OF ANGINA PECTORIS; TECHNIQUE: After the intravenous administration of 10.2 mCi Tc 99m Sestamibi - Cardiolite resting SP ECT images acquired 60 minutes post injection. The patient received 0.4mg Lexiscan, 26.2 mCi Tc 99m Sestamibi - Stress images obtained [address] injection FINDINGS: Review of stress and rest SPECT images demonstrates fixed perfusion defects along the entire inferola teral wall total defects are more pronounced in rest suggesting attenuation artifact. Perfusion defec t extends to involve the mid to basal inferior wall on rest. Stress images show possible small area o f reversibility along the mid anterior wall. Gated analysis shows normal wall motion with an estimated left ventricular ejection fraction of %. T ID is calculated at 1.0, within normal limits. IMPRESSION: 1. Either prominent diaphragmatic attenuation artifact versus old infarct along the inferior wall. Cl inically correlate. 2. Possible small area of reversibility along the mid anterior wall. This area is equivocal as it is not corroborated on polar mass.
== END | disposition home or self-care (01) ==
LOC: RADNMMAIN 07:23
PROVIDERS: ATTEND Family Medicine
DX: I20.89 Other forms of angina pectoris (principal)
CPT/HCPCS: 78452; 93017

== ENCOUNTER → 2024-06-13 | Outpatient (CLI) | payer MEDICARE ==
[2024-06-13 15:55] LABS: Basophils # (A) 0.03 X 10*3/uL (0.00-0.10); Basophils % (A) 0.4 %; Eosinophils # (A) 0.08 X 10*3/uL (0.04-0.35); Eosinophils % (A) 1.1 %; HCT 40.7 % (37.2-46.3); HGB 13.2 g/dL (12.0-15.0); Lymphocytes # (A) 1.97 X 10*3/uL (0.90-5.00); MCH 31.9 pg (27.0-32.0); MCHC 32.4 g/dL (32.0-37.0); MCV 98.3 FL (80.0-97.0); Mean Platelet Volume 9.6 FL (9.5-12.2); Monocytes # (A) 0.51 X 10*3/uL (0.20-1.00); Monocytes % (A) 6.7 %; NRBC Per 100 WBC 0 X 10*3/uL (0.00-0.01); Neutrophils # (A) 4.95 X 10*3/uL (1.80-7.70); Neutrophils % (A) 65.4 %; Platelet Count 250 X 10*3/uL (140-440); RBC 4.14 X 10*6/uL (4.10-5.20); RDW 13.8 % (11.5-14.5); WBC 7.57 X 10*3/uL (4.50-10.00)
[2024-06-13 15:56] LABS: ALT 76 U/L (8-44); AST 53 U/L (13-35)
[2024-06-13 16:35] LABS: Erythrocyte Sedimentation Rate 20 mm/Hr (0-30)
== END | disposition home or self-care (01) ==
LOC: LABWHC1 11:03
PROVIDERS: ATTEND Internal Medicine Rheumatology
DX: M05.79 Rheumatoid arthritis with rheumatoid factor of multiple sites without organ or systems involvement (principal)
CPT/HCPCS: 36415; 82565; 84450; 84460; 85025; 85652; 86140

== ENCOUNTER → 2024-07-18 | Outpatient (CLI) | payer MEDICARE ==
[2024-07-18 14:50] LABS: African American GFR (CKD) 80 (>60 ml/min/1.73 sqM); Blood Urea Nitrogen 23 mg/dL (7-17); Non-African American GFR(CKD) 69 (>60 ml/min/1.73 sqM)
--- NOTE | 2024-07-19 09:56 | CT ---
EXAMINATION TYPE: CT angio abd aorta w/Runoff DATE OF EXAM: 07/18/2024 4:25 PM COMPARISON: None. CLINICAL INDICATION: Female, 68 years old with history of R60.0 LOCALIZED EDEMA; PHH, left lower leg swelling and pain TECHNIQUE: CT noncontrast abdomen pelvis followed by CT angiogram abdomen and pelvis and bilateral lower extremi ties. Additional delayed scan through the legs. Multiple thin slice sub-millimeter images were obtained before and after administration of contrast. 3-D reconstructed images and maximum intensity projection images were obtained. CT Contrast: Contrast used:150 ml mL of Isovue 370 with IV Contrast, CT DLP: 2696 mGycm, Automated exposure control for dose reduction was used. FINDINGS: CTA Abdomen and pelvis: Scattered mild atherosclerotic calcifications abdominal aorta and iliac arteries. Lower descending thoracic aorta ectatic 2.9 cm. The Ectatic at the thoracoabdominal junction and 2.9 cm. Borderline fusiform ectasia infrarenal abdominal aorta up to 2.5 cm. Visceral artery origins are patent. Malik renal arteries. CTA bilateral lower extremities The bilateral SFA, [employer], PFA, and popliteal arteries are patent. The tibial peroneal trunks are patent. Normal takeoff of the anterior tibial arteries. Nonvisualization of the posterior tibial artery on the right. The anterior tibial arteries become diminutive at the mid leg levels and are then no longer seen by t he lower third leg levels. The bilateral peroneal arteries supply collateral flow to the anterior tibial arteries at the ankle a nd foot. The right peroneal artery appears to supply the right posterior tibial artery at the distal third leg level. Subsequent three-vessel runoff into the foot. Pronounced subcutaneous soft tissue edema, left greater than right. CT ABDOMEN AND PELVIS Groundglass and subpleural microcystic change, possible early honeycombing at the lung bases. Heart b orderline in size. Low attenuation of the hepatic parenchyma with the liver borderline enlarged at 17.9 cm. Gallbladder, adrenal glands, right kidney, spleen with inferior hilar splenule, pancreas show no rashaad s abnormality. Numerous left-sided renal cortical cysts measuring up to 2.5 cm. No dilated small bowel, free fluid, or free air. No mesenteric or retroperitoneal lymphadenopathy. Scattered mild stool. Scattered mild sigmoid diverticulosis. No pericolonic inflammatory change. Bladder is collapsed. Uterus surgically absent. Neither ovary well seen. Pelvic floor relaxation. Bones: Mild degenerative change of the hips. 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 IMPRESSION: 1. Scattered mild atherosclerotic changes. Borderline fusiform ectasia infrarenal abdominal aorta up to 2.5 cm. 2. The anterior tibial arteries become diminutive at the mid leg levels and loose enhancement at the distal third legs. There is reconstitution at the ankle and feet via bilateral peroneal arteries. 3. No posterior tibial artery on the right from the tibial peroneal trunk The right peroneal artery r econstitutes the posterior tibial artery at the distal third leg. 4. Fibrotic changes at the lower lungs. Possible fibrotic NSIP or early UIP. Clinically correlate. Pu lmonary medicine referral if no established diagnosis. 5. Hepatic steatosis, left-sided renal cortical cysts measuring up to 2.5 cm, mild sigmoid diverticul osis, and pelvic floor relaxation. 6. Prominent subcutaneous soft tissue swelling left greater than right lower extremities. [facility], , 07/19/2024 9:54 AM
== END | disposition home or self-care (01) ==
LOC: RADCTMAIN 13:41
PROVIDERS: ATTEND Family Medicine
DX: K76.0 Fatty (change of) liver, not elsewhere classified (principal); N28.1 Cyst of kidney, acquired; R60.0 Localized edema; K57.30 Diverticulosis of large intestine without perforation or abscess without bleeding; M79.89 Other specified soft tissue disorders; J84.10 Pulmonary fibrosis, unspecified
CPT/HCPCS: 82565; 84520; 75635; Q9967